=== PATIENT | female | born 1940 | race Hispanic/Latino ===

== ENCOUNTER 2018-08-01 13:17 | Inpatient (IN) | payer OTHER, MEDICARE ==
[~2018-08-01] VITALS: Ht 165.1 cm; Wt 84.7 kg
[2018-08-01] VITALS (10 sets, daily range): BP systolic 114–151; BP diastolic 40–74
[2018-08-01] MEDS ORDERED: HEPARIN SODIUM 1000UNIT/ML 10ML VIAL ONE ×2 (14:38→17:07)
[2018-08-01] MEDS ORDERED: NITROGLYCERIN 5 MG/ML 10 ML VIAL IV ONE (14:39)
[2018-08-01] MEDS ORDERED: LIDOCAINE HCL 2% 20ML ONE (14:39)
[2018-08-01] MEDS ORDERED: IOHEXOL-350 50ML VIAL IV ONE (14:39)
[2018-08-01] MEDS ORDERED: IOHEXOL 350 MG/ML 100ML INFUS..BTL IV ONE ×2 (14:39→16:14)
[2018-08-01] MEDS ORDERED: HYDRALAZINE HCL 20 MG/ML VIAL ONE (15:26)
[2018-08-01] MEDS ORDERED: DOPAMINE HCL 400 MG/D5%-WATER 250 ML IV ONE (15:52)
[2018-08-01] MEDS ORDERED: EPINEPHRINE 1 MG/ML AMPULE ONE ×2 (15:57)
[2018-08-01] MEDS ORDERED: HEPARIN 25000 UNITS/250 ML D5W 250 ML IV SCH (16:45)
[2018-08-01] MEDS ORDERED: ONDANSETRON HCL 4 MG/2 ML VIAL IVP PRN (16:45)
[2018-08-01] MEDS ORDERED: DOPAMINE 800MG/D5 250ML 250 ML IV PRN (16:45)
[2018-08-01] MEDS ORDERED: TEMAZEPAM 30 MG CAP PO PRN (16:45)
[2018-08-01] MEDS ORDERED: ACETAMINOPHEN-CODEINE 300/30MG TAB PO PRN (16:45)
[2018-08-01] MEDS ORDERED: ONDANSETRON HCL 4 MG/2 ML VIAL ONE (16:46)
[2018-08-01] MEDS ORDERED: HEPARIN 25000 UNITS/250 ML D5W 250 ML IV ONE (16:49)
[2018-08-01] MEDS ORDERED: ASPIRIN 81MG TAB.CHEW ONE ×2 (17:03→17:05)
[2018-08-01] MEDS ORDERED: CLOPIDOGREL BISULFATE 300 MG TAB ONE (17:03)
[2018-08-01 17:11] LABS: BASOPHILS % (AUTO) 0.5 % (0.0-5.0); EOSINOPHILS % (AUTO) 3.2 % (0.0-8.0); HEMATOCRIT 37.7 % (36-48); LYMPHOCYTES % (AUTO) 21.8 % (21.0-51.0); MEAN CORPUSCULAR HEMOGLOBIN 30.5 pg (27.0-33.0); MEAN CORPUSCULAR HGB CONC 34.1 g/dL (32.0-36.0); MEAN CORPUSCULAR VOLUME 89.6 fL (79-99); MONOCYTES % (AUTO) 6.4 % (3.0-13.0); NEUTROPHILS % (AUTO) 68.1 % (40.0-77.0); PLATELET COUNT (AUTO) 207 K/uL (130-400); RED BLOOD CELL COUNT(AUTO) 4.21 MIL/uL (4.00-5.50); WHITE BLOOD COUNT (AUTO) 7.2 K/uL (4.8-10.8)
[2018-08-01 18:08] LABS: TROPONIN I 5.58 ng/mL (0.00-0.06)
[2018-08-01] MEDS ORDERED: LOSARTAN 50 MG TABLET PO ONE (19:30)
[2018-08-01] MEDS ORDERED: MORPHINE SULFATE 2 MG/ML 1ML SYG IM PRN (21:00)
[2018-08-01] MEDS ORDERED: GLUCAGON 1MG KIT 1 MG ML IM PRN (21:00)
[2018-08-01] MEDS ORDERED: DEXTROSE 50%-WATER 50 ML DISP.SYRIN IV PRN (21:00)
[2018-08-01] MEDS: INSULIN HUMULIN R 100 UNIT/ML 3ML SQ SCH (22:02)
[2018-08-01] MEDS: SODIUM CHLORIDE 0.9% 1000ML 1,000 ML IV SCH (22:35)
[2018-08-01] MEDS ORDERED: SODIUM CHLORIDE 0.9% 1000ML 1,000 ML IV ONE (22:43)
[2018-08-01] MEDS: ACETAMINOPHEN-CODEINE 300/30MG TAB PO PRN (22:53)
[2018-08-01 23:45] LABS: MAGNESIUM 1.9 mg/dL (1.80-2.40); POTASSIUM 3.8 mmol/L (3.5-5.1)
[2018-08-02] VITALS (36 sets, daily range): BP systolic 85–158; BP diastolic 27–54
[2018-08-02 00:25] LABS: HEMOGLOBIN A1C 7.4 % (4.0-6.0)
[2018-08-02 00:29] LABS: TROPONIN I 7.2 ng/mL (0.00-0.06)
[2018-08-02] MEDS ORDERED: ONDANSETRON HCL MDV 20ML 2 MG/ML VIAL ONE (01:31)
[2018-08-02 05:53] LABS: HEMATOCRIT 33.8 % (36-48); MEAN CORPUSCULAR HEMOGLOBIN 29.9 pg (27.0-33.0); MEAN CORPUSCULAR VOLUME 90.6 fL (79-99); PLATELET COUNT (AUTO) 182 K/uL (130-400); RED BLOOD CELL COUNT(AUTO) 3.73 MIL/uL (4.00-5.50); RED CELL DISTRIBUTION WIDTH 14.5 % (11.0-15.5); WHITE BLOOD COUNT (AUTO) 6.6 K/uL (4.8-10.8)
[2018-08-02 06:18] LABS: CREATININE 1.2 mg/dL (0.5-1.5); POTASSIUM 4.2 mmol/L (3.5-5.1)
[2018-08-02 06:24] LABS: TROPONIN I 6.18 ng/mL (0.00-0.06)
[2018-08-02] MEDS: SODIUM CHLORIDE 0.9% 1000ML 1,000 ML IV SCH ×3 (06:39→17:15)
[2018-08-02] MEDS: INSULIN HUMULIN R 100 UNIT/ML 3ML SQ SCH ×4 (06:40→20:42)
[2018-08-02] MEDS: CLOPIDOGREL BISULFATE 75 MG TAB PO SCH (08:02)
[2018-08-02] MEDS: PANTOPRAZOLE SODIUM 40 MG TABLET.DR PO SCH (08:02)
[2018-08-02] MEDS: ASPIRIN 81MG TAB.CHEW PO SCH (08:02)
[2018-08-02] MEDS: LOSARTAN 50 MG TABLET PO SCH (08:02)
[2018-08-02] MEDS ORDERED: METO25TA6 PO (11:01)
[2018-08-02] MEDS ORDERED: LEVO50TA11 PO (11:01)
[2018-08-02] MEDS ORDERED: PRED10TA3 PO (11:01)
[2018-08-02] MEDS ORDERED: GUAI5SYR4 PO (11:01)
[2018-08-02] MEDS ORDERED: CLOP75TA32 PO (11:01)
[2018-08-02] MEDS ORDERED: LEVE750T10 PO (11:01)
[2018-08-02] MEDS ORDERED: ALBU8.5H8 IH (11:01)
[2018-08-02] MEDS ORDERED: NITR0.4T50 SL (11:01)
[2018-08-02] MEDS ORDERED: ATOR40TA69 PO (11:01)
[2018-08-02] MEDS ORDERED: AZIT1PAC7 PO (11:01)
[2018-08-02] MEDS: INSULIN LISPRO 100 UNIT/ML 3ML SQ SCH ×2 (12:03→17:14)
[2018-08-02] MEDS ORDERED: BUDE10.2 IH (12:07)
[2018-08-02] MEDS: ACETAMINOPHEN-CODEINE 300/30MG TAB PO PRN (13:12)
[2018-08-02] MEDS: INSULIN GLARGINE 100 UNITS/ML 10 ML VIAL SQ SCH (20:46)
[2018-08-03] VITALS (20 sets, daily range): BP systolic 116–155; BP diastolic 36–95
[2018-08-03] MEDS: INSULIN HUMULIN R 100 UNIT/ML 3ML SQ SCH ×4 (05:34→21:00)
[2018-08-03] MEDS: INSULIN LISPRO 100 UNIT/ML 3ML SQ SCH ×3 (06:55→16:21)
[2018-08-03] MEDS: PANTOPRAZOLE SODIUM 40 MG TABLET.DR PO SCH (09:25)
[2018-08-03] MEDS: CLOPIDOGREL BISULFATE 75 MG TAB PO SCH (09:25)
[2018-08-03] MEDS: ASPIRIN 81MG TAB.CHEW PO SCH (09:25)
[2018-08-03] MEDS: LOSARTAN 50 MG TABLET PO SCH (09:25)
[2018-08-03] MEDS: INSULIN GLARGINE 100 UNITS/ML 10 ML VIAL SQ SCH (21:26)
[2018-08-04 03:00] VITALS: BP 167/56
[2018-08-04 04:34] LABS: HEMATOCRIT 29.9 % (36-48); MEAN CORPUSCULAR HEMOGLOBIN 31.1 pg (27.0-33.0); MEAN CORPUSCULAR HGB CONC 34.3 g/dL (32.0-36.0); MEAN CORPUSCULAR VOLUME 90.5 fL (79-99); PLATELET COUNT (AUTO) 135 K/uL (130-400); RED BLOOD CELL COUNT(AUTO) 3.31 MIL/uL (4.00-5.50); RED CELL DISTRIBUTION WIDTH 14.6 % (11.0-15.5); WHITE BLOOD COUNT (AUTO) 5.3 K/uL (4.8-10.8)
[2018-08-04 04:42] LABS: POTASSIUM 3.5 mmol/L (3.5-5.1)
[2018-08-04] MEDS: INSULIN HUMULIN R 100 UNIT/ML 3ML SQ SCH ×2 (07:26→11:13)
[2018-08-04 07:39] VITALS: BP 175/59
[2018-08-04] MEDS: CLOPIDOGREL BISULFATE 75 MG TAB PO SCH (08:51)
[2018-08-04] MEDS: PANTOPRAZOLE SODIUM 40 MG TABLET.DR PO SCH (08:51)
[2018-08-04] MEDS: LOSARTAN 50 MG TABLET PO SCH (08:51)
[2018-08-04] MEDS: ASPIRIN 81MG TAB.CHEW PO SCH (08:51)
[2018-08-04] MEDS: INSULIN LISPRO 100 UNIT/ML 3ML SQ SCH ×2 (09:00→12:33)
[2018-08-04] MEDS ORDERED: LEVETIRACETAM 250 MG TABLET PO SCH ×2 (11:30→21:00)
[2018-08-04 11:39] VITALS: BP 161/57
[2018-08-04] MEDS ORDERED: METOPROLOL TARTRATE 25 MG TAB PO SCH (12:00)
== END 2018-08-04 15:20 | disposition home or self-care (01) | DRG 252 ==
LOC: EDBD → 2AH 14:23 → OBSVTOIN 14:23 → 2BH 18:12 → 2AH 08-03 19:11
PROVIDERS: ADMIT Internal Medicine; ATTEND Internal Medicine
PROC: 4A023N7 Measurement of Cardiac Sampling and Pressure, Left Heart, Percutaneous Approach (ICD-10-PCS; principal; 2018-08-01)
PROC: 03743DZ Dilation of Left Subclavian Artery with Intraluminal Device, Percutaneous Approach (ICD-10-PCS; 2018-08-01)
PROC: B2111ZZ Fluoroscopy of Multiple Coronary Arteries using Low Osmolar Contrast (ICD-10-PCS; 2018-08-01)
PROC: 4A023N7 Measurement of Cardiac Sampling and Pressure, Left Heart, Percutaneous Approach (ICD-10-PCS; 2018-08-01)
PROC: B2121ZZ Fluoroscopy of Single Coronary Artery Bypass Graft using Low Osmolar Contrast (ICD-10-PCS; 2018-08-01)
PROC: B2181ZZ Fluoroscopy of Left Internal Mammary Bypass Graft using Low Osmolar Contrast (ICD-10-PCS; 2018-08-01)
PROC: B3121ZZ Fluoroscopy of Left Subclavian Artery using Low Osmolar Contrast (ICD-10-PCS; 2018-08-01)
DX: I77.76 Dissection of artery of upper extremity (principal); I21.4 Non-ST elevation (NSTEMI) myocardial infarction; G45.9 Transient cerebral ischemic attack, unspecified; I42.9 Cardiomyopathy, unspecified; I25.110 Atherosclerotic heart disease of native coronary artery with unstable angina pectoris; I10 Essential (primary) hypertension; E11.65 Type 2 diabetes mellitus with hyperglycemia; E66.9 Obesity, unspecified; E78.2 Mixed hyperlipidemia; I70.8 Atherosclerosis of other arteries; Z68.31 Body mass index [BMI] 31.0-31.9, adult; Z79.4 Long term (current) use of insulin; Z79.82 Long term (current) use of aspirin; Z86.73 Personal history of transient ischemic attack (TIA), and cerebral infarction without residual deficits; Z95.1 Presence of aortocoronary bypass graft; Z88.8 Allergy status to other drugs, medicaments and biological substances; Z83.3 Family history of diabetes mellitus; Z80.9 Family history of malignant neoplasm, unspecified
CPT/HCPCS: 36215; 36415; 37236; 70450; 75710; 80048; 80061; 82550; 82948; 83036; 83735; 83874; 84484; 85025; 85027; 85347; 85730; 93005; 93306; 93455; 93880; C1725; C1769; C1893; C1894; J0171; J0360; J1265; J1644; J1815; J2405; J3490; J7030; Q9967